=== PATIENT | male | born 1965 | race Caucasian/White ===

== ENCOUNTER 2016-10-26 10:09 | Emergency (ER) | payer OTHER ==
[2016-10-26 12:20] VITALS: BP 166/101
--- NOTE | 2016-10-26 12:50 | UC ---
Throat Pain/Nasal Dash HPI - HPI Summary HPI Summary: pt c/o nasal congestion, sinus pressure pain, Sore throat and PND - History of Current Complaint Chief Complaint: UCRespiratory Stated Complaint: SINUS Time Seen by Provider: 10/26/16 12:32 Hx Obtained From: Patient Onset/Duration: Gradual Onset, Lasting Days Severity: Moderate Associated Signs & Symptoms: Positive: Sinus Discomfort, Other - chills - Allergies/Home Medications Allergies/Adverse Reactions: Allergies Allergy/AdvReac Type Severity Reaction Status Date / Time muscle relaxant Allergy Itching Uncoded 10/26/16 12:20 Home Medications: Home Medications Methylphenidate HCl [Methylphenidate HCl ER] 27 mg PO DAILY 10/26/16 [History Confirmed 10/26/16] Montelukast Sodium TAB* [Singulair 10 MG TAB*] 10 mg PO DAILY 10/26/16 [History Confirmed 10/26/16] Omeprazole CAP* [Prilosec CAP* 20 MG] 20 mg PO DAILY 10/26/16 [History Confirmed 10/26/16] PMH/Surg Hx/FS Hx/Imm Hx Previously Healthy: Yes - Surgical History Surgical History: None - Family History Known Family History: Positive: Cardiac Disease - Social History Lives: With Family Alcohol Use: Occasionally Substance Use Type: None Smoking Status (MU): Never Smoked Tobacco Review of Systems Constitutional: Chills, Fatigue Skin: Negative Eyes: Negative ENT: Sore Throat, Other - nasal congestion Respiratory: Negative Cardiovascular: Negative Gastrointestinal: Negative Genitourinary: Negative Motor: Negative Neurovascular: Negative Musculoskeletal: Negative Neurological: Negative Psychological: Negative All Other Systems Reviewed And Are Negative: Yes Physical Exam Triage Information Reviewed: Yes Appearance: Ill-Appearing Vital Signs: Initial Vital Signs Temp 98.2 F 10/26/16 12:17 Pulse 96 10/26/16 12:17 Resp 14 10/26/16 12:17 BP 166/101 10/26/16 12:17 Pulse Ox 97 10/26/16 12:17 Vital Signs Reviewed: Yes ENT Exam: Other ENT: Positive: Nasal congestion, Other: - maxillary sinus tenderness Neck exam: Normal Respiratory Exam: Normal Cardiovascular Exam: Normal Musculoskeletal Exam: Normal Neurological Exam: Normal Psychological Exam: Normal Skin Exam: Normal Throat Pain/Nasal Course/Dx - Differential Dx/Diagnosis Differential Diagnosis/HQI/PQRI: Influenza, Sinusitis, URI Provider Diagnoses: sinusitis Discharge - Discharge Plan Condition: Stable Disposition: HOME Prescriptions: Amoxicillin (*) 875 mg PO BID #20 tab Patient Education Materials: Sinusitis (ED) Referrals: Dariel Melgoza MD [Primary Care Provider] -
== END 2016-10-26 12:56 | disposition home or self-care (01) ==
LOC: UCCORT 10:09
DX: J32.9 Chronic sinusitis, unspecified (principal); Z88.8 Allergy status to other drugs, medicaments and biological substances
CPT/HCPCS: 99212; G0463